=== PATIENT | male | born 1975 | race Caucasian/White ===

== ENCOUNTER 2021-02-23 12:51 | Emergency (ER) | payer SELFPAY ==
[~2021-02-23] VITALS: Ht 182.9 cm; Wt 89.4 kg
--- NOTE | 2021-02-23 12:52 | NUR ---
[id number], came to ER c/o sudden onset of pounding midsternal chest pain, left arm weakness and lightheadedness around 1215pm today. RR is even and unlabored with no apparent distress noted. Skin is warm and non diaphoretic. Placed on the monitor. EKG baseline AFIB @140s. Dr Malagon made aware.
--- NOTE | 2021-02-23 12:58 | NUR ---
Dr Malagon at for eval.
[2021-02-23] MEDS ORDERED: DILTIAZEM HCL 25 MG IV ONE (13:15)
[2021-02-23] MEDS: DILTIAZEM HCL 50 MG IV IV ONE (13:20)
[2021-02-23 13:27] LABS: BASOPHILS # (AUTO) 0.1 K/uL (0.0-0.2); BASOPHILS % (AUTO) 0.6 % (0.0-2.0); HEMATOCRIT 44 % (39-51); HEMOGLOBIN 15.2 g/dL (13.5-17.5); LYMPHOCYTES # (AUTO) 3.1 K/uL (0.8-4.8); LYMPHOCYTES % (AUTO) 32.7 % (20.0-44.0); MEAN CORPUSCULAR HGB CONC 35 g/dl (31.0-36.0); MEAN CORPUSCULAR VOLUME 91 fL (80-96); MONOCYTES # (AUTO) 0.7 K/uL (0.1-1.30); MONOCYTES % (AUTO) 7.6 % (2.0-12.0); NEUTROPHILS # (AUTO) 5.5 K/uL (1.8-8.9); NEUTROPHILS % (AUTO) 57.1 % (43.0-81.0); PLATELET COUNT (AUTO) 238 K/uL (150-450); RED BLOOD CELL COUNT(AUTO) 4.83 MIL/uL (4.5-6.0); WHITE BLOOD COUNT (AUTO) 9.6 K/uL (4.3-11.0)
[2021-02-23 13:36] LABS: CALCIUM, SERUM 9.2 mg/dL (8.5-10.1); CARBON DIOXIDE 25 mmol/L (21-32); CHLORIDE 106 mmol/L (98-107); CREATININE 0.9 mg/dL (0.6-1.3); GLUCOSE 104 mg/dL (74-106); SODIUM SERUM 139 mmol/L (136-145); UREA NITROGEN, BLOOD 15 mg/dL (7-18)
[2021-02-23] MEDS ORDERED: DILTIAZEM HCL 30 MG TABLET ONE (13:40)
[2021-02-23] MEDS: DILTIAZEM HCL 30 MG TABLET PO ONE (13:44)
[2021-02-23] MEDS ORDERED: DILT180C93 PO (14:42)
[2021-02-23 15:34] VITALS: BP 118/68
--- NOTE | 2021-02-23 15:34 | NUR ---
IV removed. Catheter intact and site benign. Pressure and 4x4 applied to site. No bleeding noted.Patient discharged to home in stable condition. Written and verbal after care instructions given. Patient verbalizes understanding of instruction.
[2021-02-24 04:10] LABS: THYROID STIMULATING HORMONE 1.182 uIU/mL (0.358-3.74)
== END 2021-02-23 15:35 | disposition home or self-care (01) ==
LOC: ER 12:59
DX: I48.91 Unspecified atrial fibrillation (principal); Z79.899 Other long term (current) drug therapy
CPT/HCPCS: 36415; 71045; 80048; 84439; 84443; 84484; 85025; 93005 ×3; 96374; 99291; J3490; J7030